=== PATIENT | male | born 1945 | race Caucasian/White ===

== ENCOUNTER 2016-12-05 06:52 | Emergency (ER) | payer MEDICARE, OTHER ==
[~2016-12-05] VITALS: Wt 92.0 kg
[~2016-12-05 06:52] MED LIST: ASPI-481 PO; ATOR10TA65; LORA-441 PO; NITR0.4T6 SL; PLAVIX; TOPROL XL; ZOLP5TAB PO
--- NOTE | 2016-12-05 07:26 | ERD ---
ER Documentation Chief Complaint Date/Time DATE: 12/05/16 TIME: 07:23 Chief Complaint WOKE UP WITH SOB AND HIGH BP THIS MORNING. NO CP. NO DIAPHORESIS HPI 71-year-old male presents to the emergency department by ambulance complaining of an episode of shortness of breath. Patient states he awoke this morning at 530 feeling like his blood pressure was high. He was anxious and nervous and felt like he "was not getting enough air in." He denies any chest pain palpitations, fevers, chills. I have reviewed the corporate communications specialist pre-hospital care. Pre-hospital vital signs were reviewed. Pre-hospital diagnostic tests were reviewed. Upon arrival, patient reports no further symptoms. He states he has never had chest pain during this episode. He reports no further shortness of breath. He states he saw his supply chain specialist yesterday and was given a clean bill of health. ROS All systems reviewed and are negative except as per history of present illness. Medications Home Meds Reported Medications Nitroglycerin* (Nitroglycerin* SL) 0.4 Mg Tab.subl, 0.4 MG SL Q5 MIN PRN 01/31/13 Atorvastatin Calcium (Atorvastatin Calcium) 10 Mg Tab, MG DAILY 01/31/13 [Toprol Xl] No Conflict Check, 25 MG BID 01/31/13 [Plavix] No Conflict Check, 75 MG 01/31/13 Zolpidem Tartrate* (Ambien*) 5 Mg Tablet, 5 MG PO HS PRN 04/26/12 Lorazepam* (Ativan*) 0.5 Mg Tablet, 0.5 MG PO DAILY PRN 04/26/12 Aspirin (Baby Aspirin) 81 Mg Tab.chew, 81 MG PO DAILY 04/26/12 Allergies Allergies: Coded Allergies: No Known Allergies (Verified Allergy, Unknown, 01/31/13) PMhx/Soc History of Surgery: Yes (ANGIOGRAM, PROSTATE SURG) Anesthesia Reaction: No Hx Neurological Disorder: No Hx Respiratory Disorders: No Hx Cardiac Disorders: Yes (CAD) Hx Psychiatric Problems: No Hx Miscellaneous Medical Probl: No Hx Alcohol Use: No Hx Substance Use: No Hx Tobacco Use: Yes FmHx Noncontributory for chief complaint Physical Exam Vitals Vital Signs Date Time Temp Pulse Resp B/P Pulse Ox O2 Delivery O2 Flow Rate FiO2 12/05/16 07:04 98.1 60 20 126/65 98 Physical Exam GENERAL: The patient is well developed and appropriate for usual state of health in no apparent distress HEENT: Pupils equal, round, and reactive to light. EOMI. There is no scleral icterus. NECK: C-spine is soft and supple, there is no meningismus. There is no cervical lymphadenopathy. LUNGS: Clear to auscultation bilaterally. There are no rales, wheezes or rhonchi. HEART: Regular rate and rhythm, no murmurs, clicks, rubs or gallops. ABDOMEN: Soft, non-tender, non-distended. There are bowel sounds in all four quadrants. No rebound or guarding. EXTREMITIES: There is no peripheral cyanosis or edema. No focal swelling or erythema. NEURO: The patient moves all four extremities with 5/5 strength. Cranial nerves II - XII are intact. Normal gait. Alert and oriented SKIN: There is no apparent rash or petechiae. HEME/LYMPHATIC: There is no evidence of excessive bruising or lymphedema. PSYCHIATRIC: Patient is anxious and nervous. Normal mental status. No suicidal or homicidal thoughts. Procedures/MDM Patient was taken to a room, seen and evaluated. Comfort measures were initiated. Diagnostic tests were ordered and reviewed. 3 LEAD RHYTHM STRIP: Normal sinus rhythm without ectopy EK lead EKG reviewed by myself: Normal Sinus Rhythm Normal [place] and intervals Nonspecific ST and T-wave changes without ST elevation Impression: Nonspecific EKG MEDICAL DECISION MAKIN-year-old male with a history of underlying high blood pressure presents to the emergency department with what appears to be anxiety related symptoms. At this time, his blood pressure has normalized, he has no further anxiety. He has no evidence on clinical examination of pneumonia or congestive heart failure. I have offered the patient further diagnostic evaluation including troponins and cardiac observation, although I think this is low likelihood. Patient has decided not to stay for further diagnostic evaluation having just seeing his supply chain specialist yesterday. Departure Diagnosis: Primary Impression: Anxiety attack Condition: Stable Patient Instructions: Anxiety Reaction Referrals: MERRY GARNER MD (PCP) Additional Instructions: See your doctor for follow-up as discussed. Take a copy of your test results, if appropriate, to this follow-up visit. See your doctor or return here if your symptoms do not improve as expected. At any time, please return to the emergency department for any change or worsening in her symptoms. SYD BUSCH Dec 05, 2016 07:26
[2016-12-05 07:33] VITALS: BP 128/68; PULSE 75; RESP 18
== END 2016-12-05 07:52 | disposition home or self-care (01) ==
LOC: E/R 06:52
DX: F41.0 Panic disorder [episodic paroxysmal anxiety] (principal); I25.10 Atherosclerotic heart disease of native coronary artery without angina pectoris; R40.2142 Coma scale, eyes open, spontaneous, at arrival to emergency department; R40.2252 Coma scale, best verbal response, oriented, at arrival to emergency department; R40.2362 Coma scale, best motor response, obeys commands, at arrival to emergency department; F17.210 Nicotine dependence, cigarettes, uncomplicated; Z79.82 Long term (current) use of aspirin; Z98.61 Coronary angioplasty status